=== PATIENT | female | born 2000 | race African-American/Black ===

== ENCOUNTER 2022-10-07 13:09 | Emergency (ER) | payer MEDICAID, OTHER ==
[~2022-10-07] VITALS: Ht 154.9 cm; Wt 84.1 kg
[2022-10-07] MEDS ORDERED: GI COCKTAIL 50ML BTL(HYOSCYAMINE/MAALOX/LIDOCAINE VISCOUS)(1:3:1) PO ONE (13:40)
[2022-10-07 13:59] LABS: BASO % 0.3 % (0.0-1.0); EOS # 0.1 10^3/uL (0.0-0.5); EOS % 0.7 % (0.0-3.0); HEMOGLOBIN 12.4 g/dl (12.0-15.5); LYMPH # 0.7 10^3/uL (1.5-5.0); MEAN CORPUSCULAR HEMOGLOBIN 27.4 pg (27.0-33.0); MEAN CORPUSCULAR HGB CONC 32.6 g/dl (32.0-36.5); MEAN CORPUSCULAR VOLUME 84.1 fl (80.0-96.0); MONO # 0.7 10^3/uL (0.0-0.8); MONO % 4.8 % (2.0-8.0); NEUTROPHILS # 12.2 10^3/uL (1.5-8.5); NEUTROPHILS % 88.9 % (36.0-66.0); PLATELET COUNT, AUTOMATED 410 10^3/uL (150-450); RED BLOOD COUNT 4.52 10^6/uL (4.00-5.40); WHITE BLOOD COUNT 13.7 10^3/uL (4.0-10.0)
[2022-10-07 14:18] LABS: BLOOD UREA NITROGEN 7 MG/DL (9-23); CARBON DIOXIDE LEVEL 26 MMOL/L (20-31); CHLORIDE LEVEL 103 MMOL/L (98-107); CK-MB VALUE MASS < 1.0 NG/ML (<3.6); CPK CREATINE PHOSPHOKINASE 80 U/L (34-145); CREATININE FOR GFR 0.54 MG/DL (0.55-1.30); GLUCOSE, FASTING 88 MG/DL (60-100); MB/CK RELATIVE INDEX 1.25 (< OR =4); POTASSIUM SERUM 4.4 MMOL/L (3.5-5.1); SODIUM LEVEL 137 MMOL/L (136-145)
[2022-10-07 14:52] LABS: LIPASE 26 U/L (12-53)
[2022-10-07 14:58] LABS: ALKALINE PHOSPHATASE 168 U/L (46-116); ALT/SGPT 134 U/L (7.0-40); AST/SGOT 222 U/L (<34); BILIRUBIN,DIRECT 0.4 MG/DL (<0.4); BILIRUBIN,TOTAL 0.7 MG/DL (0.3-1.2); TOTAL PROTEIN 7.8 G/DL (5.7-8.2)
[2022-10-07 15:02] LABS: HCG, SERUM QUALITATIVE NEGATIVE (NEGATIVE)
[2022-10-07 15:40] LABS: CK-MB VALUE MASS < 1.0 NG/ML (<3.6)
[2022-10-07 15:41] LABS: CPK CREATINE PHOSPHOKINASE 76 U/L (34-145); MB/CK RELATIVE INDEX 1.31 (< OR =4)
[2022-10-07 17:30] VITALS: BP 111/55
[2022-10-07 17:55] LABS: HEPATITIS B SURFACE ANTIGEN NEGATIVE (NEGATIVE)
[2022-10-07 18:16] LABS: HEPATITIS B CORE ANTIBODY IGM NEGATIVE (NEGATIVE)
== END 2022-10-07 17:51 | disposition home or self-care (01) ==
LOC: M ED 13:09
DX: R74.01 Elevation of levels of liver transaminase levels (principal); K83.9 Disease of biliary tract, unspecified; R00.0 Tachycardia, unspecified; I45.10 Unspecified right bundle-branch block; F10.10 Alcohol abuse, uncomplicated

== ENCOUNTER 2023-09-25 10:38 | Emergency (ER) | payer OTHER ==
[~2023-09-25] VITALS: Ht 157.5 cm; Wt 96.9 kg
[2023-09-25 10:38] VITALS: BP 139/95; TEMP 98.4; O2SAT 98
[2023-09-25 11:51] LABS: RSV AMPLIFICATION NEGATIVE (NEGATIVE)
[2023-09-25] MEDS ORDERED: BENZ200C70 PO (11:59)
== END 2023-09-25 12:05 | disposition home or self-care (01) ==
LOC: M ED 10:38
DX: J06.9 Acute upper respiratory infection, unspecified (principal); Z79.811 Long term (current) use of aromatase inhibitors

== ENCOUNTER 2024-06-19 05:18 | Emergency (ER) | payer OTHER ==
[~2024-06-19 05:18] MED LIST: BENZ200C70 PO
[2024-06-19 11:15] VITALS: BP 101/53; TEMP 97.8
[2024-06-19 11:16] VITALS: O2SAT 96
== END 2024-06-19 11:20 | disposition home or self-care (01) ==
LOC: M ED 05:18
DX: F10.129 Alcohol abuse with intoxication, unspecified (principal)

== ENCOUNTER → 2024-09-30 | Outpatient (REF) | LOC: M EMP 16:11 | PROVIDERS: ATTEND Family Medicine | DX: Z11.52 Encounter for screening for COVID-19 (principal) ==

== ENCOUNTER 2025-03-08 20:21 | Emergency (ER) | payer OTHER ==
[~2025-03-08] VITALS: Ht 154.9 cm; Wt 98.8 kg
[2025-03-08 21:03] LABS: KETONE, URINE AUTO RFX NEGATIVE (NEGATIVE); LEUKOCYTE ESTERASE UR AUTO RFX 2+ (NEGATIVE); NITRITE, URINE AUTO RFX NEGATIVE (NEGATIVE); RBC, URINE AUTO RFX 4 /HPF (0-3); SQUAM EPITHELIAL CELL UR AURFX 2 /HPF (0-6); WBC, URINE AUTO RFX 72 /HPF (0-3)
[2025-03-08 21:06] LABS: BASO # 0.1 10^3/uL (0.0-0.2); BASO % 0.5 % (0.0-1.0); EOS # 0.1 10^3/uL (0.0-0.5); EOS % 0.9 % (0.0-3.0); LYMPH # 2.8 10^3/uL (1.5-5.0); LYMPH % 30.0 % (24.0-44.0); MONO # 0.6 10^3/uL (0.0-0.8); MONO % 6.8 % (2.0-8.0); NEUTROPHILS # 5.7 10^3/uL (1.5-8.5); NEUTROPHILS % 61.6 % (36.0-66.0); PLATELET COUNT, AUTOMATED 388 10^3/uL (150-450)
[2025-03-08 21:24] LABS: HCG, SERUM QUALITATIVE NEGATIVE (NEGATIVE)
[2025-03-08 21:26] LABS: CALCIUM LEVEL 9.3 MG/DL (8.5-10.1); CARBON DIOXIDE LEVEL 28 MMOL/L (20-31); CHLORIDE LEVEL 101 MMOL/L (98-107); CREATININE FOR GFR 0.67 MG/DL (0.55-1.30); GLOMERULAR FILTRATION RATE > 90.0 (>60); POTASSIUM SERUM 3.8 MMOL/L (3.5-5.1); SODIUM LEVEL 140 MMOL/L (136-145)
[2025-03-08 22:18] LABS: ALT/SGPT 24 U/L (7.0-40); AST/SGOT 22 U/L (<34)
[2025-03-08] MEDS: NS (Normal Saline) 0.9% 1,000 ML IV ONE (22:39)
[2025-03-08] MEDS: KETOROLAC 30 MG/ML 1 ML VIAL IV ONE (22:40)
[2025-03-09] MEDS ORDERED: CEFD1CAP9 PO (00:09)
[2025-03-09] MEDS ORDERED: KETO-204 PO (00:10)
[2025-03-09] MEDS: cefTRIAXone SOD 1 GM in DEXTROSE 5% (D5W) ADV/MINI-BAG 50 ML IV ONE (00:27)
[2025-03-09 01:00] VITALS: BP 133/72; TEMP 97.8; O2SAT 98
== END 2025-03-09 01:10 | disposition home or self-care (01) ==
LOC: M ED 20:21
DX: N10 Acute pyelonephritis (principal); F10.10 Alcohol abuse, uncomplicated; R16.0 Hepatomegaly, not elsewhere classified; K76.0 Fatty (change of) liver, not elsewhere classified; Z79.2 Long term (current) use of antibiotics
CPT/HCPCS: 74176; 80048; 80076; 81001; 83690; 84703; 85025; 87088; 87186; 96361; 96374; 96375; 99284; J0696; J1885

== ENCOUNTER 2025-03-18 13:24 | Emergency (ER) | payer OTHER ==
[~2025-03-18] VITALS: Ht 154.9 cm; Wt 97.4 kg
[~2025-03-18 13:24] MED LIST changes: +CEFD1CAP9 PO; +KETO-204 PO
[2025-03-18 13:26] VITALS: TEMP 97.8
[2025-03-18] MEDS ORDERED: AMOX875T2 PO (14:16)
[2025-03-18] MEDS: BOOSTRIX VACCINE (TETANUS/DIPHTH/ACEL. PERTUSSIS) 0.5 ML SYR IM.IMMUN ONE (14:28)
[2025-03-18 14:46] VITALS: BP 138/70; O2SAT 99
== END 2025-03-18 14:50 | disposition home or self-care (01) ==
LOC: M ED 13:24
DX: S61.230A Puncture wound without foreign body of right index finger without damage to nail, initial encounter (principal); S61.232A Puncture wound without foreign body of right middle finger without damage to nail, initial encounter; W54.0XXA Bitten by dog, initial encounter; Y92.9 Unspecified place or not applicable; Y93.89 Activity, other specified; Y99.9 Unspecified external cause status; Z79.2 Long term (current) use of antibiotics; Z79.899 Other long term (current) drug therapy; Z23 Encounter for immunization